=== PATIENT | female | born 1995 | race Caucasian/White ===

== ENCOUNTER 2017-08-22 15:27 | Inpatient (IN) | payer MEDICAID, OTHER ==
[~2017-08-22] VITALS: Ht 160 cm; Wt 64.4 kg
[2017-08-22 17:39] LABS: BASOPHILS % (AUTO) 0.3 % (0.0-2.0); EOSINOPHILS % (AUTO) 0.1 % (1.0-6.0); HEMATOCRIT 40.9 % (36-46); HEMOGLOBIN 13.9 g/dL (12.0-16.0); LYMPHOCYTES % (AUTO) 24.2 % (22.0-44.0); MEAN CORPUSCULAR HEMOGLOBIN 32.2 pg (26.0-34.0); MEAN CORPUSCULAR HGB CONC 34.1 G/dL (31.0-37.0); MEAN CORPUSCULAR VOLUME 95 fL (80-100); MONOCYTES # (AUTO) 0.5 K/uL (0.1-1.0); MONOCYTES % (AUTO) 6.1 % (2.0-9.0); NEUTROPHILS # (AUTO) 5.8 K/uL (1.8-7.7); NEUTROPHILS % (AUTO) 69.3 % (40.0-70.0); PLATELET COUNT (AUTO) 232 K/uL (150-450); RED BLOOD CELL COUNT(AUTO) 4.33 MIL/uL (4.00-5.20); RED CELL DISTRIBUTION WIDTH 13.1 % (11.5-14.5)
[2017-08-22 17:52] LABS: ANION GAP 11 mmol/L (8-16); CALCIUM, TOTAL 9.2 mg/dL (8.8-10.5); CARBON DIOXIDE 29 mmol/L (22-29); CHLORIDE 100 mmol/L (98-107); CREATININE 0.56 mg/dL (0.60-1.30); GLOMERULAR FILTR. RATE CALC > 60 mL/min (>60); GLUCOSE,RANDOM 102 mg/dL (70-110); POTASSIUM 3.8 mmol/L (3.5-5.1); SODIUM SERUM 140 mmol/L (136-145); UREA NITROGEN, BLOOD 10 mg/dL (7-18)
[2017-08-22 17:56] LABS: AMPHET/METH SCREEN,URINE NEGATIVE (NEGATIVE); BARBITURATE SCREEN, URINE NEGATIVE (NEGATIVE); BENZODIAZEPINES SCREEN,URINE NEGATIVE (NEGATIVE); CANNABINOID SCREEN,URINE POSITIVE (NEGATIVE); COCAINE SCREEN,URINE NEGATIVE (NEGATIVE); METHADONE SCREEN, URINE NEGATIVE (NEGATIVE); OPIATE SCREEN,URINE NEGATIVE (NEGATIVE)
[2017-08-22 17:57] LABS: ALANINE AMINOTRANSFERASE 31 U/L (12-78); ALBUMIN 4.3 g/dL (3.4-5.0); ALKALINE PHOSPHATASE 77 U/L (46-116); ASPARTATE AMINOTRANSFERASE 22 U/L (15-37); BILIRUBIN,TOTAL 0.3 mg/dL (0.1-1.0); TOTAL PROTEIN, SERUM 7.7 g/dL (6.4-8.2)
[2017-08-22 18:00] LABS: PHENCYCLIDINE SCREEN,URINE NEGATIVE (NEGATIVE)
[2017-08-22] MEDS ORDERED: ZOLPIDEM TARTRATE 10 MG TABLET PO PRN (19:45)
[2017-08-22] MEDS ORDERED: HALOPERIDOL 5 MG TABLET PO PRN (19:45)
[2017-08-22] MEDS ORDERED: LORazepam 2 MG TABLET PO PRN (19:45)
[2017-08-22 20:52] VITALS: BP 109/67
[2017-08-22] MEDS ORDERED: INFLUENZA VIRUS VACCINE QVS 2017-18 (3YR+)/PF 60 MCG/0.5 ML SYRINGE IM ONE (21:45)
[2017-08-22 23:58] LABS: APPEARANCE,URINE CLEAR (CLEAR); BILIRUBIN,URINE NEGATIVE (NEGATIVE); GLUCOSE, URINE (UA) NEGATIVE (NEGATIVE); KETONES,URINE NEGATIVE (NEGATIVE); LEUKOCYTE ESTERASE ,URINE NEGATIVE (NEGATIVE); NITRATE,URINE NEGATIVE (NEGATIVE); OCCULT BLOOD,URINE NEGATIVE (NEGATIVE); PROTEIN,URINE NEGATIVE (NEGATIVE); UROBILINOGEN,URINE 0.2 mg/dL (<=1.0)
[2017-08-23 08:05] VITALS: BP 106/66
[2017-08-23 17:30] VITALS: BP 116/71
[2017-08-23] MEDS: OLANZapine 5 MG TABLET PO SCH (20:12)
[2017-08-24 17:49] VITALS: BP 97/67
[2017-08-24] MEDS: OLANZapine 5 MG TABLET PO SCH (20:16)
[2017-08-25 08:44] VITALS: BP 101/62
[2017-08-25 16:16] VITALS: BP 125/71
[2017-08-25] MEDS: OLANZapine 5 MG TABLET PO SCH (20:16)
[2017-08-26 08:05] VITALS: BP 104/61
[2017-08-26] MEDS ORDERED: OLAN5TAB2 PO (09:43)
== END 2017-08-26 13:00 | disposition home or self-care (01) | DRG 754 ==
LOC: EMS 15:29 → 3EI 19:57
PROVIDERS: ADMIT Psychiatry & Neurology Child & Adolescent Psychiatry; ATTEND Psychiatry & Neurology Child & Adolescent Psychiatry
DX: F32.9 Major depressive disorder, single episode, unspecified (principal); R45.851 Suicidal ideations; Z71.6 Tobacco abuse counseling; G47.00 Insomnia, unspecified; F19.10 Other psychoactive substance abuse, uncomplicated; F12.90 Cannabis use, unspecified, uncomplicated; Z71.89 Other specified counseling; F17.210 Nicotine dependence, cigarettes, uncomplicated; Z79.899 Other long term (current) drug therapy
CPT/HCPCS: 99285; 99406; G0480

== ENCOUNTER 2018-09-15 22:18 | Inpatient (IN) | payer MEDICAID, OTHER ==
[~2018-09-15] VITALS: Ht 162.6 cm; Wt 73.5 kg
[~2018-09-15 22:18] MED LIST: OLAN5TAB2 PO
[2018-09-15] MEDS ORDERED: SERT50TA12 PO (23:54)
[2018-09-15] MEDS ORDERED: BUPR100 PO (23:54)
[2018-09-15] MEDS ORDERED: LORazepam 2 MG/ML VIAL ONE (23:57)
[2018-09-15] MEDS ORDERED: HALOPERIDOL LACTATE 5 MG/ML VIAL ONE (23:57)
[2018-09-15] MEDS ORDERED: DiphenhydrAMINE HCL 50 MG/ML VIAL ONE (23:57)
[2018-09-16] MEDS ORDERED: LORazepam 2 MG/ML VIAL IM ONE
[2018-09-16] MEDS ORDERED: HALOPERIDOL LACTATE 5 MG/ML VIAL IM ONE
[2018-09-16] MEDS ORDERED: DiphenhydrAMINE HCL 50 MG/ML VIAL IM ONE
[2018-09-16 00:01] LABS: BASOPHILS % (AUTO) 0.6 % (0.0-2.0); EOSINOPHILS % (AUTO) 0.3 % (1.0-6.0); HEMATOCRIT 35.9 % (36-46); HEMOGLOBIN 12.1 g/dL (12.0-16.0); LYMPHOCYTES # (AUTO) 2.8 K/uL (1.0-4.8); LYMPHOCYTES % (AUTO) 30.2 % (22.0-44.0); MEAN CORPUSCULAR HGB CONC 33.6 G/dL (31.0-37.0); MEAN CORPUSCULAR VOLUME 95 fL (80-100); MONOCYTES # (AUTO) 0.9 K/uL (0.1-1.0); MONOCYTES % (AUTO) 9.3 % (2.0-9.0); NEUTROPHILS # (AUTO) 5.5 K/uL (1.8-7.7); NEUTROPHILS % (AUTO) 59.6 % (40.0-70.0); PLATELET COUNT (AUTO) 242 K/uL (150-450); RED BLOOD CELL COUNT(AUTO) 3.76 MIL/uL (4.00-5.20); RED CELL DISTRIBUTION WIDTH 13.3 % (11.5-14.5)
[2018-09-16 00:11] LABS: ANION GAP 11 mmol/L (8-16); CALCIUM, TOTAL 8.7 mg/dL (8.8-10.5); CARBON DIOXIDE 27 mmol/L (22-29); CHLORIDE 103 mmol/L (98-107); CREATININE 0.63 mg/dL (0.60-1.30); GLOMERULAR FILTR. RATE CALC > 60 mL/min (>60); GLUCOSE,RANDOM 96 mg/dL (70-110); POTASSIUM 3.4 mmol/L (3.5-5.1); SODIUM SERUM 141 mmol/L (136-145); UREA NITROGEN, BLOOD 9 mg/dL (7-18)
[2018-09-16 00:35] LABS: ALANINE AMINOTRANSFERASE 37 U/L (12-78); ALBUMIN 3.6 g/dL (3.4-5.0); ALKALINE PHOSPHATASE 52 U/L (46-116); ASPARTATE AMINOTRANSFERASE 29 U/L (15-37); BILIRUBIN,TOTAL 0.3 mg/dL (0.1-1.0); HCG,QUANTITATIVE 545 mIU/mL (0-6); TOTAL PROTEIN, SERUM 7.2 g/dL (6.4-8.2)
[2018-09-16] MEDS ORDERED: HALOPERIDOL 5 MG TABLET PO PRN (02:15)
[2018-09-16 04:08] LABS: APPEARANCE,URINE CLEAR (CLEAR); BILIRUBIN,URINE NEGATIVE (NEGATIVE); GLUCOSE, URINE (UA) NEGATIVE (NEGATIVE); KETONES,URINE TRACE mg/dL (NEGATIVE); LEUKOCYTE ESTERASE ,URINE NEGATIVE (NEGATIVE); NITRATE,URINE NEGATIVE (NEGATIVE); OCCULT BLOOD,URINE TRACE (NEGATIVE); PH,URINE 6.5 (5.0-8.0); PROTEIN,URINE NEGATIVE (NEGATIVE); UROBILINOGEN,URINE 0.2 mg/dL (<=1.0)
[2018-09-16 04:13] LABS: AMPHET/METH SCREEN,URINE NEGATIVE (NEGATIVE); BARBITURATE SCREEN, URINE NEGATIVE (NEGATIVE); BENZODIAZEPINES SCREEN,URINE NEGATIVE (NEGATIVE); CANNABINOID SCREEN,URINE POSITIVE (NEGATIVE); COCAINE SCREEN,URINE NEGATIVE (NEGATIVE); METHADONE SCREEN, URINE NEGATIVE (NEGATIVE); OPIATE SCREEN,URINE NEGATIVE (NEGATIVE); PHENCYCLIDINE SCREEN,URINE NEGATIVE (NEGATIVE)
[2018-09-16 04:16] LABS: BACTERIA,URINE Rare /HPF (None Seen); RBC,URINE 0-2 /HPF (0-2); SQUAMOUS EPITHELIAL CELL,UR Moderate /LPF (None Seen); WBC,URINE 0-2 /HPF (0-5)
[2018-09-16] MEDS: LORazepam 2 MG TABLET PO PRN (17:19)
[2018-09-16 18:41] VITALS: BP 111/78
[2018-09-16] MEDS ORDERED: POTASSIUM CHLORIDE 20 MEQ ER TABLET PO ONE (20:15)
[2018-09-17 01:18] VITALS: BP 101/62
[2018-09-17 08:26] VITALS: BP 91/60
[2018-09-17 09:02] LABS: CHOL/HDL RATIO 3.1 (3.9-5.7); POTASSIUM 3.6 mmol/L (3.5-5.1)
[2018-09-17] MEDS: BuPROPion HCL XL 150 MG ER TABLET PO SCH (11:59)
[2018-09-17 16:04] VITALS: BP 119/89
[2018-09-17] MEDS: DIVALPROEX SODIUM 500 MG DR TABLET PO SCH (20:23)
[2018-09-17] MEDS: LORazepam 2 MG TABLET PO PRN (22:11)
[2018-09-17] MEDS: ZOLPIDEM TARTRATE 10 MG TABLET PO PRN (23:48)
[2018-09-18 00:01] VITALS: BP 111/79
[2018-09-18] MEDS: BuPROPion HCL XL 150 MG ER TABLET PO SCH (08:07)
[2018-09-18] MEDS: PRENATAL VIT#96/FERROUS FUM/FA TABLET PO SCH (08:08)
[2018-09-18 08:20] VITALS: BP 102/55
[2018-09-18 16:14] VITALS: BP 117/60
[2018-09-18] MEDS: DIVALPROEX SODIUM 500 MG DR TABLET PO SCH (20:36)
[2018-09-18] MEDS: ZOLPIDEM TARTRATE 10 MG TABLET PO PRN (22:02)
[2018-09-19 04:10] VITALS: BP 103/60
[2018-09-19] MEDS: LORazepam 2 MG TABLET PO PRN (04:23)
[2018-09-19] MEDS: BuPROPion HCL XL 150 MG ER TABLET PO SCH (08:22)
[2018-09-19] MEDS: PRENATAL VIT#96/FERROUS FUM/FA TABLET PO SCH (08:22)
[2018-09-19 09:06] VITALS: BP 106/64
[2018-09-19] MEDS ORDERED: BUPR-93 PO (09:15)
[2018-09-19] MEDS ORDERED: VALP250 PO (09:15)
[2018-09-19] MEDS ORDERED: PREN1TAB80 PO (09:15)
[2018-09-19] MEDS ORDERED: BUPR-47 PO (10:54)
[2018-09-19] MEDS ORDERED: DIVA-78 PO ×2 (10:54→11:12)
== END 2018-09-19 12:15 | disposition home or self-care (01) | DRG 751 ==
LOC: EMS 22:19 → B2S 09-16 15:52
DX: F33.2 Major depressive disorder, recurrent severe without psychotic features (principal); R45.851 Suicidal ideations; F12.10 Cannabis abuse, uncomplicated; F43.12 Post-traumatic stress disorder, chronic; F17.210 Nicotine dependence, cigarettes, uncomplicated; E87.6 Hypokalemia; Z32.01 Encounter for pregnancy test, result positive; Z79.899 Other long term (current) drug therapy
CPT/HCPCS: 76801; 76817; 84132; 86900; 90686; 96372; G0480; J1200; J1630; J2060